=== PATIENT | male | born 1980 | race Caucasian/White ===

== ENCOUNTER 2021-02-17 18:50 | Emergency (ER) | payer OTHER ==
[2021-02-17 19:03] VITALS: BP 142/89; PULSE 79; TEMP 98.1; BMI 25.5
[2021-02-17] MEDS ORDERED: METOCLOPRAMIDE HCL INJECTION 10 MG/2 ML VIAL IVPB ONE (20:25)
[2021-02-17] MEDS ORDERED: FAMOTIDINE 20 MG/50 ML IVPB 20 MG/50 ML MG IVPB ONE ×2 (20:25→20:42)
[2021-02-17] MEDS ORDERED: LACTATED RINGERS SOLUTION 1,000 ML IV STA (20:25)
[2021-02-17] MEDS ORDERED: METOCLOPRAMIDE HCL INJECTION 10 MG/2 ML VIAL ONE (20:42)
[2021-02-17 21:13] LABS: BASO % 0.5 % (0-2.0); EOS % 4.1 % (0-4.5); HEMATOCRIT 41.3 % (35.4-49); HEMOGLOBIN 14.3 GM/dL (11.7-16.9); LYMPH % 40.2 % (8-40); MCH 29.2 pg (25.7-33.7); MCHC 34.6 g/dl (32.0-35.9); MEAN CELL VOLUME 84.3 fl (80-96); MEAN PLT VOLUME 7.8 fl (7.5-11.1); MONO % 11.8 % (3.8-10.2); NEUT % 43.4 % (42.8-82.8); PLATELET COUNT 329 10^3/uL (134-434); RDW 13.2 % (11.9-15.9); WHITE BLOOD COUNT 7.2 K/mm3 (4.0-10.0)
[2021-02-17 21:18] LABS: PH,URINE 5.5 (5.0-8.0); URINE APPEARANCE CLEAR; URINE BILIRUBIN NEGATIVE (NEGATIVE); URINE COLOR YELLOW; URINE GLUCOSE (UA) NEGATIVE (NEGATIVE); URINE KETONE NEGATIVE (NEGATIVE); URINE LEUK ESTERASE NEGATIVE (NEGATIVE); URINE NITRITE NEGATIVE (NEGATIVE); URINE PROTEIN NEGATIVE (NEGATIVE); URINE UROBILINOGEN 0.2 mg/dL (0.2-1.0)
[2021-02-17 21:46] LABS: ALBUMIN 4.2 g/dl (3.4-5.0); CALCIUM 8.9 mg/dL (8.5-10.1)
[2021-02-17 21:47] LABS: BLOOD UREA NITROGEN 24.2 mg/dL (7-18)
[2021-02-17 21:52] LABS: BILIRUBIN,TOTAL 0.6 mg/dL (0.2-1); TOT PROT 7.5 g/dl (6.4-8.2)
== END 2021-02-17 22:11 | disposition home or self-care (01) ==
LOC: JER 18:50
PROC: 3E033GC Introduction of Other Therapeutic Substance into Peripheral Vein, Percutaneous Approach (ICD-10-PCS; principal; 2021-02-17)
PROC: 3E033GC Introduction of Other Therapeutic Substance into Peripheral Vein, Percutaneous Approach (ICD-10-PCS; 2021-02-17)
DX: K52.9 Noninfective gastroenteritis and colitis, unspecified (principal); R19.7 Diarrhea, unspecified
CPT/HCPCS: 36415; 80053; 81003; 83690; 85025; 99284-25

== ENCOUNTER → 2021-07-26 | Emergency (ER) | payer OTHER ==
[2021-07-26 18:13] VITALS: BP 116/83; PULSE 77; TEMP 98; BMI 25.8
== END | disposition home or self-care (01) ==
LOC: JERFT 18:04
DX: S60.041A Contusion of right ring finger without damage to nail, initial encounter (principal); W23.0XXA Caught, crushed, jammed, or pinched between moving objects, initial encounter
CPT/HCPCS: 73130-TC-RT-FY; 99283-25

== ENCOUNTER 2023-05-19 22:18 | Emergency (ER) | payer OTHER ==
[~2023-05-19 22:18] MED LIST: predniSONE 20 MG TABLET (UD) PO ONE
[2023-05-19 22:21] VITALS: BP 128/84; PULSE 68; RESP 20; TEMP 98.5; BMI 26.6
[2023-05-19] MEDS ORDERED: FLUORESCEIN NA 1 EA STRIP OU ONE (22:30)
[2023-05-19] MEDS ORDERED: diphenhydrAMINE HCL 25 MG CAPSULE (FP) PO ONE ×2 (22:42→22:58)
[2023-05-19] MEDS ORDERED: FLUORESCEIN NA 1 EA STRIP ONE (22:59)
[2023-05-19] MEDS ORDERED: predniSONE 20 MG TABLET (UD) ONE (22:59)
== END 2023-05-19 23:34 | disposition home or self-care (01) ==
LOC: JERFT 22:18 → JER 22:18
DX: R21 Rash and other nonspecific skin eruption (principal); L29.9 Pruritus, unspecified; L25.9 Unspecified contact dermatitis, unspecified cause
CPT/HCPCS: 99283-25